=== PATIENT | male | born 1950 | race Caucasian/White ===

== ENCOUNTER 2016-12-18 13:58 | Observation (INO) | payer MEDICARE ==
[2016-12-18] MEDS ORDERED: Aspirin Low Dose CHEW TAB* 81 MG PO ONE (14:20)
--- NOTE | 2016-12-18 14:48 | RAD ---
INDICATION: Chest pain. COMPARISON: Comparison is made with a prior study from December 30, 2011. TECHNIQUE: A portable view of the chest was obtained. FINDINGS: Cardiac and mediastinal contours appear to be within normal limits. The lungs are clear. No pleural effusion is seen. IMPRESSION: NO EVIDENCE FOR ACUTE DISEASE.
[2016-12-18 14:49] LABS: Hematocrit 46 % (42-52); Hemoglobin 15.7 g/dl (14.0-18.0); Mean Corpuscular HGB Conc 34 g/dl (31-36); Mean Corpuscular Hemoglobin 32 pg (27-31); Mean Corpuscular Volume 93 fL (80-94); Mean Platelet Volume 9 um3 (7.4-10.4); Red Blood Count 4.92 10^6/ul (4.0-5.4); Red Cell Distribution Width 13 % (10.5-15); White Blood Count 8.2 10^3/ul (3.5-10.8)
[2016-12-18 14:53] LABS: Albumin 3.8 g/dL (3.2-5.2); BUN/Creatinine Ratio 14.5 (8-20); Calcium 9.6 mg/dL (8.6-10.3); EGFR African American 66.7 (>60); EGFR Non-African American 51.9 (>60); Globulin 2.5 g/dL (2-4); Potassium 4.1 mmol/L (3.5-5.0); Total Bilirubin 0.7 mg/dL (0.2-1.0); Total Protein 6.3 g/dL (6.4-8.9)
[2016-12-18 15:12] LABS: Troponin I 0.04 ng/mL (<0.04)
[2016-12-18 15:23] LABS: TSH (Thyroid Stimulating Horm) 1.05 mcIU/mL (0.34-5.60)
[2016-12-18] MEDS ORDERED: Dextrose 50% Syringe 50 ML* 25 GM/50 ML SYRINGE IV PUSH PRN (16:07)
[2016-12-18] MEDS ORDERED: Ondansetron INJ* 2 MG/ML VIAL IV PRN (16:07)
[2016-12-18] MEDS ORDERED: Albuterol HFA INHALER* 8 gm MDI INH PRN (16:11)
--- NOTE | 2016-12-18 17:04 | ED ---
Bryson Veloz Alok, scribed for Champ Stephens MD on 12/18/16 at 1421 . HPI Chest Pain - HPI Summary HPI Summary: 66 y/o male presents to the ED for chest pressure and increased HR accompanied by diaphoresis while at lunch today. Pt states he felt close to losing consciousness at the time, though his symptoms have improved somewhat since then , and denies nausea. PMHx includes HTN and had a TN 10 years ago. - History of Current Complaint Chief Complaint: EDDysrhythmPalp Time Seen by Provider: 12/18/16 14:14 Hx Obtained From: Patient Onset/Duration: Started Hours Ago, Atraumatic, Still Present Timing: Constant, Lasting Minutes Initial Severity: Moderate Current Severity: Mild Pain Intensity: 0 Pain Scale Used: 0-10 Numeric Chest Pain Location: Discrete at:, Mid Sternal Chest Pain Radiates: No Character: Fast, Pressure/Squeezing Aggravating Factor(s): Nothing Associated Signs and Symptoms: Positive: Chest Pain, Other: - Increased HR. Negative: Nausea - Allergy/Home Medications Allergies/Adverse Reactions: Allergies Allergy/AdvReac Type Severity Reaction Status Date / Time Morphine Allergy Severe Difficulty Verified 03/19/14 10:20 Breathing Cilostazol Allergy Unknown Verified 03/19/14 10:25 Reaction Details Home Medications: Home Medications Albuterol HFA INHALER* [Ventolin HFA Inhaler*] 2 puff INH .Q4-6H PRN 12/18/16 [ History Confirmed 12/18/16] Aspirin EC Low Dose* [Ecotrin EC Low Dose 81 MG*] 81 mg PO DAILY 12/18/16 [ History Confirmed 12/18/16] Atorvastatin* [Lipitor*] 40 mg PO DAILY 12/18/16 [History Confirmed 12/18/16] Benzonatate CAP* [Tessalon 100 MG CAP*] 100 mg PO Q8HR PRN 12/18/16 [History Confirmed 12/18/16] Digoxin TAB* [Lanoxin TAB*] 0.125 mg PO DAILY 12/18/16 [History Confirmed ] Flecainide TAB* [Tambocor TAB*] 300 mg PO BID 12/18/16 [History Confirmed ] Gabapentin CAP(*) [Neurontin 100 mg CAP(*)] 100 mg PO TID 12/18/16 [History Confirmed 12/18/16] Gabapentin CAP(*) [Neurontin 300 CAP(*)] 300 mg PO TID 12/18/16 [History Confirmed 12/18/16] Lisinopril/HCTZ 20/25(NF) [Zestoretic 20/25(NF)] 1 tab PO DAILY 12/18/16 [ History Confirmed 12/18/16] Meloxicam(NF) [Mobic(NF)] 15 mg PO DAILY 12/18/16 [History Confirmed 12/18/16] Metformin ER (NF) 500 mg PO DAILY 12/18/16 [History Confirmed 12/18/16] Multivitamins/Minerals TAB* [Theragran/minerals TAB*] 1 tab PO DAILY 12/18/16 [ History Confirmed 12/18/16] Nitroglycerin TAB 0.4 MG* 0.4 mg SL Q5M PRN 12/18/16 [History Confirmed 12/18/16 ] Omeprazole CAP* [Prilosec CAP* 20 MG] 20 mg PO DAILY 12/18/16 [History Confirmed 12/18/16] Rosuvastatin (NF) [Crestor] 20 mg PO DAILY 12/18/16 [History Confirmed 12/18/16] PMH/Surg Hx/FS Hx/Imm Hx Endocrine/Hematology History: Reports: Hx Diabetes Denies: Hx Systemic Lupus Erythematosus Cardiovascular History: Reports: Hx Angina, Hx Hypertension Denies: Hx Congestive Heart Failure, Hx Pacemaker/ICD Respiratory History: Denies: Hx Asthma History: Denies: Hx Dialysis, Hx Renal Disease Musculoskeletal History: Denies: Hx Rheumatoid Arthritis Sensory History: Denies: Hx Hearing Aid Psychiatric History: Denies: Hx Panic Disorder - Cancer History Hx Chemotherapy: No - Surgical History Surgery Procedure, Year, and Place: BILATERAL KNEE REPLACEMENT/APPY Infectious Disease History: Denies: Traveled Outside the [place] in Last 30 Days - Family History Known Family History: Negative: Cardiac Disease, Diabetes - Social History Occupation: Disabled Lives: With Family - Mother Alcohol Use: None Substance Use Type: Reports: None Smoking Status (MU): Former Smoker Review of Systems Negative: Fever Positive: Chest Pain, Other - HR increase Negative: Nausea All Other Systems Reviewed And Are Negative: Yes Physical Exam - Summary Physical Exam Summary: VITAL SIGNS: Reviewed. GENERAL: ~Patient is an obese male who is lying comfortable in the stretcher. ~ Patient is not in any acute respiratory distress. HEAD AND FACE: Normocephalic EYES: PERRLA, EOMI x 2. EARS: Hearing grossly intact. MOUTH: Oropharynx within normal limits. NECK: Supple, trachea is midline, no adenopathy, no JVD, no carotid bruit. CHEST: Symmetric, no tenderness at palpation LUNGS: Clear to auscultation bilaterally. No wheezing or crackles. CVS: Regular rate and rhythm, S1 and S2 present, no murmurs or gallops appreciated. ABDOMEN: Soft, non-tender. Bowel sounds are normal. No abdominal abnormal pulsations. EXTREMITIES: Full ROM in all major joints. 1+ lower extremity edema. NEURO: Alert and oriented x 3. No acute neurological deficits. Speech is normal and follows commands. SKIN: Dry and warm Triage Information Reviewed: Yes Vital Signs On Initial Exam: Initial Vitals Temp Pulse Resp Pulse Ox 98.7 F 102 20 97 12/18/16 14:04 12/18/16 14:04 12/18/16 14:04 12/18/16 14:04 Vital Signs Reviewed: Yes - Madiha Coma Scale Coma Scale Total: 15 Diagnostics - Vital Signs Vital Signs Temp Pulse Resp BP Pulse Ox 12/18/16 14:08 102 18 96 12/18/16 14:06 133/48 12/18/16 14:04 98.7 F 102 20 97 - Laboratory Lab Results: Lab Results 12/18/16 12/18/16 12/18/16 Range/Units 14:20 14:20 14:20 WBC 8.2 (3.5-10.8) 10^3/ul RBC 4.92 (4.0-5.4) 10^6/ul Hgb 15.7 (14.0-18.0) g/dl Hct 46 (42-52) % MCV 93 (80-94) fL MCH 32 H (27-31) pg MCHC 34 (31-36) g/dl RDW 13 (10.5-15) % Plt Count 245 (150-450) 10^3/ul MPV 9 (7.4-10.4) um3 Neut % (Auto) 64.8 (38-83) % Lymph % (Auto) 23.2 L (25-47) % Kern % (Auto) 8.7 (1-9) % Eos % (Auto) 2.2 (0-6) % Baso % (Auto) 1.1 (0-2) % Absolute Neuts (auto) 5.3 (1.5-7.7) 10^3/ul Absolute Lymphs (auto) 1.9 (1.0-4.8) 10^3/ul Absolute Monos (auto) 0.7 (0-0.8) 10^3/ul Absolute Eos (auto) 0.2 (0-0.6) 10^3/ul Absolute Basos (auto) 0.1 (0-0.2) 10^3/ul Absolute Nucleated RBC 0.01 10^3/ul Nucleated RBC % 0.1 INR (Anticoag Therapy) 0.91 (0.89-1.11) APTT 22.8 L (26.0-36.3) seconds Sodium 133 (133-145) mmol/L Potassium 4.1 (3.5-5.0) mmol/L Chloride 99 L (101-111) mmol/L Carbon Dioxide 24 (22-32) mmol/L Anion Gap 10 (2-11) mmol/L BUN 20 (6-24) mg/dL Creatinine 1.38 H (0.67-1.17) mg/dL Est GFR ( Amer) 66.7 (>60) Est GFR (Non-Af Amer) 51.9 (>60) BUN/Creatinine Ratio 14.5 (8-20) Glucose 495 H (70-100) mg/dL Lactic Acid (0.5-2.0) mmol/L Calcium 9.6 (8.6-10.3) mg/dL Total Bilirubin 0.70 (0.2-1.0) mg/dL AST 60 H (13-39) U/L ALT 101 H (7-52) U/L Alkaline Phosphatase 127 H (34-104) U/L Total Creatine Kinase 84 (10-223) U/L CK-MB (CK-2) 3.7 (0.6-6.3) ng/mL Troponin I 0.04 H* (<0.04) ng/mL B-Natriuretic Peptide ( - 100) pg/mL Total Protein 6.3 L (6.4-8.9) g/dL Albumin 3.8 (3.2-5.2) g/dL Globulin 2.5 (2-4) g/dL Albumin/Globulin Ratio 1.5 (1-3) TSH 1.05 (0.34-5.60) mcIU/mL Thyroxine (T4) Pending Digoxin Pending 12/18/16 12/18/16 Range/Units 14:20 14:20 WBC (3.5-10.8) 10^3/ul RBC (4.0-5.4) 10^6/ul Hgb (14.0-18.0) g/dl Hct (42-52) % MCV (80-94) fL MCH (27-31) pg MCHC (31-36) g/dl RDW (10.5-15) % Plt Count (150-450) 10^3/ul MPV (7.4-10.4) um3 Neut % (Auto) (38-83) % Lymph % (Auto) (25-47) % Kern % (Auto) (1-9) % Eos % (Auto) (0-6) % Baso % (Auto) (0-2) % Absolute Neuts (auto) (1.5-7.7) 10^3/ul Absolute Lymphs (auto) (1.0-4.8) 10^3/ul Absolute Monos (auto) (0-0.8) 10^3/ul Absolute Eos (auto) (0-0.6) 10^3/ul Absolute Basos (auto) (0-0.2) 10^3/ul Absolute Nucleated RBC 10^3/ul Nucleated RBC % INR (Anticoag Therapy) (0.89-1.11) APTT (26.0-36.3) seconds Sodium (133-145) mmol/L Potassium (3.5-5.0) mmol/L Chloride (101-111) mmol/L Carbon Dioxide (22-32) mmol/L Anion Gap (2-11) mmol/L BUN (6-24) mg/dL Creatinine (0.67-1.17) mg/dL Est GFR ( Amer) (>60) Est GFR (Non-Af Amer) (>60) BUN/Creatinine Ratio (8-20) Glucose (70-100) mg/dL Lactic Acid 3.6 H* (0.5-2.0) mmol/L Calcium (8.6-10.3) mg/dL Total Bilirubin (0.2-1.0) mg/dL AST (13-39) U/L ALT (7-52) U/L Alkaline Phosphatase (34-104) U/L Total Creatine Kinase (10-223) U/L CK-MB (CK-2) (0.6-6.3) ng/mL Troponin I (<0.04) ng/mL B-Natriuretic Peptide 31 ( - 100) pg/mL Total Protein (6.4-8.9) g/dL Albumin (3.2-5.2) g/dL Globulin (2-4) g/dL Albumin/Globulin Ratio (1-3) TSH (0.34-5.60) mcIU/mL Thyroxine (T4) Digoxin Result Diagrams: 12/18/16 14:20 12/18/16 14:20 Lab Statement: Any lab studies that have been ordered have been reviewed, and results considered in the medical decision making process. - Radiology CXR Xray Interpretation: Positive (See Comments) - IMPRESSION: NO EVIDENCE FOR ACUTE DISEASE Radiology Interpretation Completed By: Radiologist - EKG 1404 Cardiac Rate: Tachycardia EKG Rhythm: Sinus Tachycardia - 102 bpm EKG Interpretation: No ST Elevations. ST depressions V4, V5, V6 Chest Pain Course/Dx - Course Course Of Treatment: 66 y/o male presents to the ED for chest pressure and increased HR accompanied by diaphoresis while at lunch today. Pt states he felt close to losing consciousness at the time, though his symptoms have improved somewhat since then, and denies nausea. PMHx includes HTN and had a TN 10 years ago. Assessment/Plan: Blood work wnl except for Chloride 99, Creatinine 1.38, Glucose 495, lactic acid 3.6, Troponin 0.04. CXR impression: No acute disease. EKG: Sinus tach w/o STEMI. As per EMS patient initially presented with SVT at 180 BPM. He was given Adenosine and symptoms improved. Patient reported that before he developed the arrhythmia he was having Chest pressure and diaphoresis. He laso had an episode of near syncope episode. AT EMS he was also given ASA. At this point symptoms have improved. Because of his comorbidities I discuss my physical exam, findings and test results with Dr. Marinelli from the hospitalist services and she agrees to admit patient to his services. Patient is hemodynamically stable alert and oriented x 3. - Chest Pain Differential Diagnosis/HQI/PQRI: Acute TN, ACS, Angina, Aortic Aneurysm, Chest Wall, GI Disease, Lower Respiratory Infection - Diagnoses Provider Diagnoses: SVT (supraventricular tachycardia), Chest pain & increased troponin r/o ACS - Provider Notifications Discussed Care Of Patient With: Dr. Marinelli (Hospitalist) @ [id number] Discharge - Discharge Plan Condition: Stable Disposition: ADMITTED TO [facility] documentation as recorded by the Bryson emerson Alok accurately reflects the service I personally performed and the decisions made by Angelo ritter Walter, MD.
[2016-12-18 17:17] LABS: Digoxin 0.4 ng/ml (0.8-2.0)
[2016-12-18 17:39] LABS: T4 7.56 g/dL (6.09-12.23)
[2016-12-18 17:40] LABS: BUN/Creatinine Ratio 14.9 (8-20); Calcium 9.3 mg/dL (8.6-10.3); EGFR Non-African American 53.7 (>60); Potassium 4.2 mmol/L (3.5-5.0)
[2016-12-18 17:44] LABS: Troponin I 0.04 ng/mL (<0.04)
[2016-12-18] MEDS: Insulin LISPRO* 1 UNITS UNIT SUBCUT SCH (18:14)
[2016-12-18] MEDS: Acetaminophen TAB* 325 MG PO PRN (19:28)
--- NOTE | 2016-12-18 20:14 | HP ---
HISTORY AND PHYSICAL: DATE OF ADMISSION: 12/18/16 PRIMARY CARE PROVIDER: Dr. Martin. ATTENDING PHYSICIAN WHILE IN THE HOSPITAL: Dr. Joelle Choe * (report dictated by Yan Billings NP) CHIEF COMPLAINT: Palpitations. HISTORY OF PRESENT ILLNESS: Mr. Gay is a 66-year-old male patient with a history of diabetes, neuropathy, hypertension, hyperlipidemia, IA, PAT, SVT, and COPD. He comes into the ER today stating that he was at a senior lunch at the [facility] and he finished his lunch and he got up because at the end of his lunch, he felt he was having palpitations, he went outside to get air. He says that on his way back in, the palpitations were continuing, he felt his heart racing. He lied down on the floor and the bystanders immediately called 911. He says he felt short of breath when this was happening. He felt like his chest was full. He was having chest pressure. When he was lying down, ambulance came, they started an IV, and gave him medication, I believe, according to the notes, it was adenosine and this responded and he says that he felt completely better after a dose. He says he has had episodes in the past where his heart has been racing like this. He came to the ER, he denied having any episodes of fainting or passing out. Denies any recent changes to medications. He has been taking his antiarrhythmics as prescribed. He says he has not missed any doses. He normally takes a medication, he does not remember the name of it, as needed. When this happened, he did not have it with him and he denied having any recent fever, chills, or any vomiting, or diarrhea, or abdominal pain. He came to the ER, it was ultimately noted that his troponin was elevated at 0.04 and because of this, we were asked to evaluate in admission , and he says he was admitted about 2 to 3 months ago at [place] for similar complaints. PAST MEDICAL HISTORY: Significant for: 1. Diabetes. 2. Neuropathy. 3. Hyperlipidemia. 4. Hypertension. 5. IA. 6. CAD. 7. SVT. 8. PAT. 9. COPD. PAST SURGICAL HISTORY: He has had: 1. Appendectomy. 2. Bilateral total knee replacement. MEDICATIONS: His home medications include: 1. We need to clarify because he is on two statins, they include: Crestor 20 mg daily. 2. Prilosec 20 mg daily. 3. Nitro 0.4 mg sublingual q.5 minutes x3 p.r.n. chest pain. 4. Multivitamin 1 tablet daily. 5. Metformin 500 mg daily. 6. Mobic 15 mg p.o. daily. 7. Lisinopril/hydrochlorothiazide 1 tablet p.o. daily. 8. Neurontin 300 mg p.o. t.i.d. 9. Flecainide 300 mg p.o. b.i.d. 10. Digoxin 0.125 mg p.o. daily. 11. Benzonatate 100 mg p.o. every 8 hours as needed for cough. 12. Lipitor 40 mg daily. 13. Aspirin 81 mg daily. 14. Ventolin 2 puffs inhaled every 4 to 6 hours as needed. ALLERGIES TO MEDICATIONS: Include MORPHINE and PLETAL. FAMILY HISTORY: His father had heart disease. His mother is still alive and healthy. SOCIAL HISTORY: He is a former smoker. He does not drink alcohol. He lives alone. Surrogate decision maker is his brother, Martin. REVIEW OF SYSTEMS: There is no documented fever. He denied having any significant weight change. There was no double vision. He denies having any ear discharge. There was no rhinorrhea. No sore throat. No thyroid enlargement. There was chest heaviness. No shortness of breath. No orthopnea , no nocturnal dyspnea. There were palpitations. No abdominal pain. No nausea , no vomiting. No dysuria, no frequency. No loss of consciousness. No pruritus and no skin ulcerations. Review of 14 systems was completed, all others negative. PHYSICAL EXAMINATION GENERAL: At this time, Mr. Gay is a 66-year-old male patient. He is morbidly obese. He is sitting in the ER stretcher. He does not appear to be in any acute distress. VITAL SIGNS: Reveal blood pressure 131/82 with a pulse of 98, respirations 20, O2 sat 97%, and a temperature of 97.9. HEENT: Head is atraumatic and normocephalic. Eyes: EOMs are intact. Sclerae anicteric and not pale. Throat: Oral mucosa appears to be moist. No oropharyngeal erythema. NECK: Supple. LUNGS: Clear to auscultation bilaterally. No wheezes, rales, or rhonchi. HEART: Heart sounds S1 and S2. Regular rate and rhythm. No murmurs, rubs, or gallops. ABDOMEN: Soft, flat, and nontender. Bowel sounds are present. EXTREMITIES: Pulses were 2+ throughout. He is able to move all 4 extremities with 5/5 strength. NEUROLOGIC: The patient is awake, he is alert, he is oriented x3. Tongue was midline. [employer] Director were equal. No gross focal deficits. SKIN: Grossly intact. DIAGNOSTIC STUDIES/LAB DATA: Revealed a WBC of 8.2, RBC of 4.92, hemoglobin of 15.7, hematocrit of 46, platelet count of 245. The INR was 0.91, PTT of 22.8. Sodium 133; potassium 4.1; chloride 99; bicarb 24; BUN 20; creatinine 1.38 , last creatinine from 3 years ago was 0.98; glucose 495; lactate 0.6; calcium 9.6. Total bili 0.7, AST 60, ALT 101, alk phos 127. CK 84, CK-MB 3.7. Troponin 0.04. Albumin of 3.8. TSH normal. He had a chest x-ray obtained today, which read no evidence of acute disease. EKG obtained today, showed sinus tachycardia, rate of 102. No ST elevations or T- wave inversions. It was reviewed to his previous EKG, it is similar with the exception the rate is faster now. Old medical records were reviewed. ASSESSMENT AND PLAN: Mr. Gay is a 66-year-old male patient, coming into the ER today with complaints of palpitations and a racing heart. On evaluation , there was noted that he had an elevated troponin. He will be admitted under observation status for: 1. Palpitations. I suspect, this sounds like he has a history of supraventricular tachycardia. I am going to try to get records from [facility]. For now, I will place him on telemetry and trend his troponins. I have ordered an echo if we are able to obtain this as he states he does not think he has had one done recently. The plan would be to trend the troponins, follow, continue his medications as prescribed. 2. Diabetes. I will put him on lispro sliding scale. We will check an A1c in the morning. 3. Neuropathy. Continue gabapentin. 4. Hyperlipidemia. Continue statin therapy. 5. History of supraventricular tachycardia. Continue the flecainide and digoxin, I am checking the level. 6. Hypertension. Continue current medical regimen. 7. Coronary artery disease. He is on aspirin and statin. We will continue. 8. Obstructive sleep apnea. I have ordered CPAP. 9. Chronic obstructive pulmonary disease. I have ordered p.r.n. albuterol. 10. DVT prophylaxis. He is high risk. He will be placed on heparin subcu. 11. Fluids, electrolytes, and nutrition. He can have a consistent carb diet. 12. Code status. Full code. TIME SPENT: On the admission 60 minutes, greater than half the time was spent face- to-face with the patient obtaining my history and physical; other half the time was spent going over the plan of care with the patient and implementing the plan of care. I did discuss the plan of care with my attending; Dr. Choe; she is in agreement. YAN BILLINGS NP CC: Dr. Martin * [id number]/CPS #: [id number] JT
[2016-12-18] MEDS: Gabapentin CAP(*) 300 MG PO SCH (20:42)
[2016-12-18] MEDS: Flecainide TAB* 100 MG PO SCH (20:42)
[2016-12-18] MEDS: Heparin VIAL(*) 5000 UNITS/ML VIAL (FIVE THOUSAND) SUBCUT SCH (22:27)
[2016-12-19] MEDS: Heparin VIAL(*) 5000 UNITS/ML VIAL (FIVE THOUSAND) SUBCUT SCH (05:26)
[2016-12-19 05:55] LABS: Hematocrit 43 % (42-52); Hemoglobin 14.4 g/dl (14.0-18.0); Mean Corpuscular HGB Conc 34 g/dl (31-36); Mean Corpuscular Hemoglobin 31 pg (27-31); Mean Corpuscular Volume 93 fL (80-94); Red Blood Count 4.62 10^6/ul (4.0-5.4); Red Cell Distribution Width 14 % (10.5-15); White Blood Count 7.8 10^3/ul (3.5-10.8)
[2016-12-19 05:56] LABS: Add Diff/Slide Review? Slide Review Added; Comments Flag Yes
[2016-12-19 06:06] LABS: HDL Cholesterol 34.1 mg/dL
[2016-12-19 07:59] LABS: BUN/Creatinine Ratio 18.9 (8-20); Calcium 8.8 mg/dL (8.6-10.3); EGFR African American 90.5 (>60); EGFR Non-African American 70.3 (>60); Potassium 3.6 mmol/L (3.5-5.0)
--- NOTE | 2016-12-19 08:17 | DCNOTE ---
Patient seen this morning. No recurrence of symptoms overnight. Feels well aside from chronic L arm and leg pain. Says he was drinking non-diet, caffeinated soda at this event yesterday which he knows he is not supposed to do. On review of notes from [facility], he was evaluated by Dr. Sahni and given prn Flecainide, stated patiant may need an ablation in the future if this becomes more frequent. As noted in H&P, did not have his prn Flecainide with him yesterday. Says he has had one additional episode of SVT at home between these two hospitalizations which resolved with vagal maneuvers. On exam, RRR, s1 and s2 present, no m/g/r, lungs CTA B/L, no w/r/r, abd obese, soft, NTND, BS+, no LE edema, L shoulder mild TTP Recheck lactate and BMP this AM, likely discharge home. Digoxin level low, hold on changing dose at this time, will recheck as an outpatient. Will need to f/u with his Medical Educator. Also instructed to avoid caffeine and sugary beverages. Keep flecainide with him at all times.
[2016-12-19] MEDS: Flecainide TAB* 100 MG PO SCH (08:27)
[2016-12-19 08:28] VITALS: BP 157/81
[2016-12-19] MEDS: Insulin LISPRO* 1 UNITS UNIT SUBCUT SCH (08:28)
[2016-12-19] MEDS: Gabapentin CAP(*) 300 MG PO SCH (08:29)
[2016-12-19 08:44] LABS: Albumin 3.4 g/dL (3.2-5.2); Direct Bilirubin 0.2 mg/dL (0.03-0.18); Globulin 2.4 g/dL (2-4); Indirect Bilirubin 0.6 mg/dL (0.3-1.0); Total Bilirubin 0.8 mg/dL (0.2-1.0); Total Protein 5.8 g/dL (6.4-8.9)
[2016-12-19] MEDS ORDERED: Lisinopril TAB* 10 MG PO SCH (09:00)
[2016-12-19] MEDS ORDERED: Aspirin EC Low Dose* 81 MG TAB.EC PO SCH (09:00)
[2016-12-19] MEDS ORDERED: Digoxin TAB* 0.125 MG PO SCH (09:00)
[2016-12-19] MEDS ORDERED: Atorvastatin* 40 MG TAB PO SCH (09:00)
[2016-12-19] MEDS ORDERED: Omeprazole CAP* 20 MG PO SCH (09:00)
[2016-12-19] MEDS: Acetaminophen TAB* 325 MG PO PRN (09:33)
--- NOTE | 2016-12-20 08:40 | DS ---
DISCHARGE SUMMARY: DATE OF ADMISSION: 12/18/16 DATE OF DISCHARGE: 12/19/16 PRIMARY CARE PHYSICIAN: Dr. Martin. PRINCIPAL DISCHARGE DIAGNOSIS: Supraventricular tachycardia. SECONDARY DIAGNOSES: 1. Diabetes. 2. Hypertension. 3. Hyperlipidemia. 4. Coronary artery disease, status post myocardial infarction. 5. Obstructive sleep apnea. 6. Chronic obstructive pulmonary disease. DISCHARGE MEDICATION REGIMEN: 1. Flecainide 300 mg by mouth as needed for SVT. 2. Gabapentin 400 mg by mouth 3 times daily. 3. Albuterol 2 puffs inhaled every 4 to 6 hours as needed for shortness of breath and wheezing. 4. Tessalon Perles 100 mg by mouth every 8 hours as needed for cough. 5. Multivitamin 1 tablet by mouth daily. 6. Aspirin 81 mg by mouth daily. 7. Lisinopril/hydrochlorothiazide 20/25 mg 1 tablet by mouth daily. 8. Crestor 20 mg by mouth daily. 9. Mobic 15 mg by mouth daily. 10. Metformin 500 mg by mouth daily. 11. Digoxin 0.125 mg by mouth daily. 12. Atorvastatin 40 mg by mouth daily. 13. Nitroglycerin 0.4 mg sublingual every 5 minutes as needed for chest pain. 14. Omeprazole 20 mg by mouth daily. STUDIES DONE DURING HOSPITALIZATION: Chest x-ray, impression: No evidence for acute disease. HISTORY OF PRESENT ILLNESS AND HOSPITAL SUMMARY: Please see the full history and physical dictated by Yan Billings NP, for full details. Briefly, Mr. Gay is a 66-year-old man with a past medical history as above who presented to the hospital with palpitations. The patient was at an event at an adult [employer] center. He states that he did have caffeinated soda during his lunch. Shortly afterwards, he had palpitations that was similar to his previous episodes of SVT in the past. They did not resolve on their own and the patient did not have his p.r.n. flecainide on him. EMS was called. En route to the emergency department, the patient received adenosine with resolution of his symptoms and he had no recurrence during this hospitalization. He was noted to have mildly elevated troponin of 0.04, which was consistent on additional draws. He had a mildly elevated lactic acidosis of 3.6, which resolved and he was also noted to be hyperglycemic, which improved with insulin. The patient had a similar episode in [facility] in August 2016. At that time, he was given flecainide to take p.r.n. and was seen by his supervisor maintenance in consultation during that hospitalization. It was recommended that if this persists or becomes more frequent, the patient may need an ablation. I will not make any medication changes at this time; however, the patient should follow up with his PCP as well as his supervisor maintenance. The patient' s digoxin level is slightly low this admission. I have ordered a recheck of this level as an outpatient. The patient will be discharged home and follow up with his outpatient providers. TIME SPENT: Total time spent on this discharge, 40 minutes. This is a summary of hospitalization. Please see the full medical record for further details. CC: Dr. Martin; Dr. Sahni* [id number]/CPS #: [id number] MTDD
== END 2016-12-19 11:00 | disposition home or self-care (01) ==
LOC: ED 13:58 → MEDTELE 15:22
PROVIDERS: ADMIT Internal Medicine; ATTEND Hospitalist
DX: I47.1 Supraventricular tachycardia (principal); E11.9 Type 2 diabetes mellitus without complications; Z79.4 Long term (current) use of insulin; I10 Essential (primary) hypertension; E78.5 Hyperlipidemia, unspecified; I25.10 Atherosclerotic heart disease of native coronary artery without angina pectoris; I25.2 Old myocardial infarction; G47.33 Obstructive sleep apnea (adult) (pediatric); J44.9 Chronic obstructive pulmonary disease, unspecified; G62.9 Polyneuropathy, unspecified; R07.9 Chest pain, unspecified; R06.02 Shortness of breath; Z79.899 Other long term (current) drug therapy; Z88.5 Allergy status to narcotic agent; Z88.8 Allergy status to other drugs, medicaments and biological substances; Z87.891 Personal history of nicotine dependence
CPT/HCPCS: 36415; 71010; 80048; 80053; 80061; 80076; 80162; 82550; 82553; 83036; 83605; 83880; 84436; 84443; 84484; 85025; 85610; 85730; 93005; 96372; 99284; A9270-GY; G0378; J1644

== ENCOUNTER 2017-07-02 11:37 | Emergency (ER) | payer MEDICARE ==
[2017-07-02 11:56] VITALS: BP 143/69
--- NOTE | 2017-07-02 12:50 | RAD ---
Indication: RIGHT shoulder pain; numbness going down RIGHT arm. Comparison: No relevant prior exams available on the [facility] PACS for comparison. Technique: AP, open-mouth odontoid, lateral, and oblique views cervical spine. Report: The cervical thoracic junction is partially obscured due to superimposed tissues limiting assessment without gross evidence for fracture or facet subluxation at any level. There is straightening relative to normal cervical lordosis. Multilevel degenerative spondylosis with moderate C5-C6 and C6-C7 disc space narrowing and vertebral endplate osteophytosis. Multilevel mild facet joint osteoarthritis. While assessment of the foramina is limited due to suboptimal obliquity there is no gross evidence for osseous foraminal stenosis. Unremarkable prevertebral soft tissue contours. IMPRESSION: Multilevel degenerative spondylosis and facet joint osteoarthritis.
[2017-07-02] MEDS ORDERED: Acetaminophen TAB* 325 MG PO ONE (12:54)
--- NOTE | 2017-07-02 12:54 | RAD ---
Indication: RIGHT shoulder pain and numbness radiating down the RIGHT arm. Comparison: No relevant prior exams available on the [facility] PACS for comparison. Technique: Internal and external rotation AP and scapular Y views RIGHT shoulder Report: Normal acromioclavicular and glenohumeral joint alignment. Moderate osteophytosis at the acromioclavicular and glenohumeral joints. Negative for significant glenohumeral joint space narrowing. Negative for fracture. Negative for stigmata of calcific tendinopathy. Unremarkable soft tissue contours. IMPRESSION: Moderate acromioclavicular and glenohumeral joint osteoarthritis.
--- NOTE | 2017-07-02 13:02 | UC ---
Shoulder Pain HPI - HPI Summary HPI Summary: worsening right shoulder pain with radiating discomfort in to elbow also c/o some burning in right elbow---no injury, rash tick bite does have full ROM - History of Current Complaint Chief Complaint: UCUpperExtremity Stated Complaint: RIGHT SHOULDER/ARM COMPLAINT Time Seen by Provider: 07/02/17 12:08 Hx Obtained From: Patient Onset/Duration: Sudden Onset, Lasting Days Timing: Constant Severity Initially: Moderate Severity Currently: Moderate Location Of Pain: Is Discrete @ - right shoulder radiating burning pain in to right elbow Pain Intensity: 8 Pain Scale Used: 0-10 Numeric Character: Burning Aggravating Factor(s): Nothing Associated Signs And Symptoms: Positive: Numbness/Tingling - in upper right arm and elbow Related History: Dominant Hand Right - Allergies/Home Medications Allergies/Adverse Reactions: Allergies Allergy/AdvReac Type Severity Reaction Status Date / Time Morphine Allergy Severe Difficulty Verified 07/02/17 11:57 Breathing Cilostazol Allergy Unknown Verified 07/02/17 11:57 Reaction Details PMH/Surg Hx/FS Hx/Imm Hx Previously Healthy: No Endocrine History: Diabetes, Dyslipidemia Cardiovascular History: Hypertension, Myocardial Infarction GI/ History: Gastroesophageal Reflux - Surgical History Surgical History: Yes Surgery Procedure, Year, and Place: BILATERAL KNEE REPLACEMENT/APPY - Family History Known Family History: Negative: Cardiac Disease, Diabetes - Social History Occupation: Retired Lives: With Family Alcohol Use: None Substance Use Type: None Smoking Status (MU): Former Smoker Type: Cigarettes Length of Time of Smoking/Using Tobacco: 17 yrs Have You Smoked in the Last Year: No When Did the Patient Quit Smoking/Using Tobacco: 1979 Review of Systems Constitutional: Negative Skin: Negative Eyes: Negative ENT: Negative Respiratory: Negative Cardiovascular: Negative Gastrointestinal: Negative Genitourinary: Negative Motor: Negative Neurovascular: Negative Musculoskeletal: Negative - shoulder/ right elbow, Arthralgia Neurological: Negative Psychological: Negative Is Patient Immunocompromised?: No All Other Systems Reviewed And Are Negative: Yes Physical Exam Triage Information Reviewed: Yes Appearance: Ill-Appearing - Chronic illness, Pain Distress, Obese Vital Signs: Initial Vital Signs Temp 97.6 F 07/02/17 11:45 Pulse 79 07/02/17 11:45 Resp 16 07/02/17 11:45 BP 143/69 07/02/17 11:45 Pulse Ox 98 07/02/17 11:45 Vital Signs Reviewed: Yes Eye Exam: Normal Eyes: Positive: Conjunctiva Clear ENT Exam: Normal ENT: Positive: Normal ENT inspection, Hearing grossly normal. Negative: Nasal congestion, Nasal drainage, Trismus, Muffled/hoarse voice Dental Exam: Normal Neck exam: Normal Neck: Positive: Supple, Nontender, No Lymphadenopathy Respiratory Exam: Normal Respiratory: Positive: Chest non-tender, Lungs clear, Normal breath sounds, No respiratory distress, No accessory muscle use Cardiovascular Exam: Normal Cardiovascular: Positive: RRR, No Murmur, Pulses Normal, Brisk Capillary Refill Musculoskeletal Exam: Normal Musculoskeletal: Positive: Strength Intact, ROM Intact, No Edema Neurological Exam: Normal Neurological: Positive: Alert, Muscle Tone Normal Psychological Exam: Normal Skin Exam: Normal Diagnostics - Radiology No standard instances Xray Interpretation: Positive (See Comments) - osteoarthritis, spondolysis Radiology Interpretation Completed By: Radiologist Shoulder Course/Dx - Course Assessment/Plan: Continue meds as rx by pcp, follow with pcp in 1 week for complete reevaluation, re-check bp with pcp as well - Differential Dx/Diagnosis Provider Diagnoses: HYpertension in poor control, spondylosis cervical spine, osteoarthritis cervical spine and right shoulder Discharge - Discharge Plan Condition: Stable Disposition: HOME Patient Education Materials: Hypertension (ED), Arthritis (ED), Spondylolisthesis (ED) Referrals: En Martin MD [Primary Care Provider] - 1 Week Additional Instructions: Continue pain medications as prescribed by pcp follow with pcp
== END 2017-07-02 13:10 | disposition home or self-care (01) ==
LOC: UCCORT 11:37
DX: M19.011 Primary osteoarthritis, right shoulder (principal); Z88.6 Allergy status to analgesic agent; E78.5 Hyperlipidemia, unspecified; E11.9 Type 2 diabetes mellitus without complications; I10 Essential (primary) hypertension; I25.2 Old myocardial infarction; K21.9 Gastro-esophageal reflux disease without esophagitis; Z87.891 Personal history of nicotine dependence; M47.892 Other spondylosis, cervical region
CPT/HCPCS: 72050; 99212; A9270-GY; G0463